=== PATIENT | male | born 1965 | race Caucasian/White ===

== ENCOUNTER → 2023-10-03 10:29 | Outpatient (REF) | payer OTHER, SELFPAY | LOC: RCS 10:29 | PROVIDERS: ATTENDING PHYSICIAN Internal Medicine Cardiovascular Disease; FAMILY PHYSICIAN Physician Assistant Medical | DX: R07.2 Precordial pain (principal) | CPT/HCPCS: 93017 ==

== ENCOUNTER → 2023-10-19 07:33 | Outpatient (REF) | payer OTHER, SELFPAY | LOC: EMG 07:33 | PROVIDERS: ATTENDING PHYSICIAN Orthopaedic Surgery; FAMILY PHYSICIAN Physician Assistant Medical | DX: R20.0 Anesthesia of skin (principal) | CPT/HCPCS: 95886; 95910 ==

== ENCOUNTER → 2023-11-30 06:20 | Day surgery (SDC) | payer OTHER, SELFPAY | LOC: GI 06:20 | PROVIDERS: ATTENDING PHYSICIAN Internal Medicine Gastroenterology; FAMILY PHYSICIAN Physician Assistant Medical | DX: D12.5 Benign neoplasm of sigmoid colon (principal); K64.8 Other hemorrhoids; K92.1 Melena; K29.50 Unspecified chronic gastritis without bleeding; K31.89 Other diseases of stomach and duodenum | CPT/HCPCS: 45385; 43239; 88305; 88342 ==

== ENCOUNTER → 2024-01-24 19:08 | Outpatient (REF) | payer OTHER, SELFPAY | LOC: MRI 19:08 | PROVIDERS: ATTENDING PHYSICIAN Psychiatry & Neurology Neurology; FAMILY PHYSICIAN Physician Assistant Medical | DX: R25.2 Cramp and spasm (principal); R29.898 Other symptoms and signs involving the musculoskeletal system; M54.2 Cervicalgia; G89.29 Other chronic pain | CPT/HCPCS: 70553; 72141; A9575 ==

== ENCOUNTER → 2024-06-21 11:06 | Outpatient (REF) | payer OTHER, SELFPAY | LOC: PAVMRI 11:06 | PROVIDERS: ATTENDING PHYSICIAN Family Medicine; FAMILY PHYSICIAN Nurse Practitioner Family; REFERRING PHYSICIAN Chiropractor | DX: M54.50 Low back pain, unspecified (principal) | CPT/HCPCS: 72148 ==

== ENCOUNTER → 2024-06-29 12:16 | Outpatient (REF) | payer OTHER, SELFPAY | LOC: PAVMRI 12:16 | PROVIDERS: ATTENDING PHYSICIAN Family Medicine; FAMILY PHYSICIAN Nurse Practitioner Family | DX: M54.50 Low back pain, unspecified (principal) | CPT/HCPCS: 72158; A9575 ==

== ENCOUNTER → 2024-08-04 08:40 | Outpatient (REF) | payer OTHER, SELFPAY | LOC: MRI 3T 08:40 | PROVIDERS: ATTENDING PHYSICIAN Nurse Practitioner Family | DX: M25.551 Pain in right hip (principal) | CPT/HCPCS: 73721 ==

== ENCOUNTER → 2025-02-19 13:25 | Outpatient (REF) | payer OTHER, SELFPAY | LOC: RAD 13:25 | PROVIDERS: ATTENDING PHYSICIAN Neurological Surgery; FAMILY PHYSICIAN Physician Assistant Medical | DX: M54.16 Radiculopathy, lumbar region (principal); M54.50 Low back pain, unspecified; G89.29 Other chronic pain | CPT/HCPCS: 72110 ==

== ENCOUNTER → 2025-03-18 09:04 | Outpatient (REF) | payer OTHER, SELFPAY | LOC: PAVMRI 09:04 | PROVIDERS: ATTENDING PHYSICIAN Neurological Surgery; FAMILY PHYSICIAN Physician Assistant Medical | DX: M54.16 Radiculopathy, lumbar region (principal); M54.50 Low back pain, unspecified; G89.29 Other chronic pain | CPT/HCPCS: 72148 ==

== ENCOUNTER → 2025-04-16 09:52 | Outpatient (REF) | payer OTHER, SELFPAY | LOC: EMG 09:52 | PROVIDERS: ATTENDING PHYSICIAN Psychiatry & Neurology Neurology; FAMILY PHYSICIAN Physician Assistant Medical | DX: M54.17 Radiculopathy, lumbosacral region (principal); R20.0 Anesthesia of skin | CPT/HCPCS: 95886; 95909 ==

== ENCOUNTER → 2025-05-06 13:10 | Outpatient (REF) | payer OTHER, SELFPAY | LOC: RCS 13:10 | PROVIDERS: ATTENDING PHYSICIAN Nurse Practitioner Gerontology; FAMILY PHYSICIAN Physician Assistant Medical | DX: R06.02 Shortness of breath (principal) | CPT/HCPCS: 93306 ==

== ENCOUNTER → 2025-05-29 11:52 | Outpatient (REF) | payer OTHER, SELFPAY | LOC: HWRCS 11:52 | PROVIDERS: ATTENDING PHYSICIAN Nurse Practitioner Gerontology; FAMILY PHYSICIAN Physician Assistant Medical | DX: R06.02 Shortness of breath (principal); R07.89 Other chest pain; I47.29 Other ventricular tachycardia | CPT/HCPCS: 78452; 93017; A9500 ==